=== PATIENT | female | born 1990 | race Two or more races ===

== ENCOUNTER 2018-07-11 00:32 | Emergency (ER) | payer OTHER ==
[~2018-07-11] VITALS: Ht 160 cm; Wt 61.8 kg
[2018-07-11 00:45] VITALS: Ht 160 cm; Wt 61.8 kg
[2018-07-11] MEDS ORDERED: PROZAC20 MG PO (00:46)
[2018-07-11] MEDS ORDERED: KLONOPIN0.5 MG PO (00:46)
[2018-07-11] MEDS ORDERED: LEVAQUIN750 MG PO (02:16)
[2018-07-11 02:27] VITALS: BP 124/79
[2018-07-16 18:11] LABS: AEROBE ID Final report (())
== END 2018-07-11 02:27 | disposition home or self-care (01) ==
LOC: D.ER 00:32
PROVIDERS: Family Medicine
DX: H66.92 Otitis media, unspecified, left ear (principal); F17.200 Nicotine dependence, unspecified, uncomplicated

== ENCOUNTER 2018-10-13 16:19 | Emergency (ER) | payer OTHER ==
[~2018-10-13] VITALS: Ht 160 cm; Wt 64.1 kg
[~2018-10-13 16:19] MED LIST: KLONOPIN0.5 MG PO; LEVAQUIN750 MG PO; PROZAC20 MG PO
[2018-10-13 16:24] VITALS: Ht 160 cm; Wt 64.1 kg
[2018-10-13 17:30] LABS: APPEARANCE CLEAR (CLEAR); BILIRUBIN NEGATIVE (NEGATIVE); COLOR YELLOW (YELLOW); GLUCOSE NEGATIVE (NEGATIVE); KETONE NEGATIVE (NEGATIVE); NITRITE NEGATIVE (NEGATIVE); PROTEIN NEGATIVE (NEGATIVE); SPECIFIC GRAVITY 1.015 (1.005-1.020); UROBILINOGEN NORMAL (NORMAL)
[2018-10-13 17:31] LABS: BACTERIA MANY /hpf (NONE SEEN); RED CELLS - URINE 0-5 /hpf (0-5); WHITE CELLS - URINE 0-5 /hpf (0-5)
[2018-10-13] MEDS ORDERED: VOLTAREN75 MG PO (18:48)
[2018-10-13] MEDS ORDERED: BACTRIM 400-801 TAB PO (18:48)
[2018-10-13 19:25] VITALS: BP 139/91
== END 2018-10-13 19:25 | disposition home or self-care (01) ==
LOC: D.ER 16:19
PROVIDERS: Family Medicine
DX: M54.5 Low back pain (principal); N39.0 Urinary tract infection, site not specified

== ENCOUNTER 2018-10-21 23:14 | Emergency (ER) | payer OTHER ==
[~2018-10-21] VITALS: Ht 160 cm; Wt 63.6 kg
[~2018-10-21 23:14] MED LIST changes: +BACTRIM 400-801 TAB PO; +VOLTAREN75 MG PO
[2018-10-21 23:31] VITALS: Ht 160 cm; Wt 63.6 kg
[2018-10-22 00:06] LABS: HCG URINE POSITIVE (NEGATIVE)
[2018-10-22 00:07] LABS: APPEARANCE HAZY (CLEAR); BILIRUBIN NEGATIVE (NEGATIVE); COLOR YELLOW (YELLOW); GLUCOSE NEGATIVE (NEGATIVE); KETONE NEGATIVE (NEGATIVE); NITRITE NEGATIVE (NEGATIVE); PROTEIN TRACE mg/dL (NEGATIVE); SPECIFIC GRAVITY 1.015 (1.005-1.020); UROBILINOGEN NORMAL (NORMAL)
[2018-10-22 00:08] LABS: BACTERIA FEW /hpf (NONE SEEN); EPITHELIAL CELLS 0-5 /hpf (0-5); RED CELLS - URINE 0-5 /hpf (0-5)
[2018-10-22] MEDS ORDERED: AUGMENTIN 875-11 TAB PO (00:35)
[2018-10-22 00:48] VITALS: BP 118/72
== END 2018-10-22 00:48 | disposition home or self-care (01) ==
LOC: D.ER 23:14
PROVIDERS: Family Medicine
DX: O23.40 Unspecified infection of urinary tract in pregnancy, unspecified trimester (principal); Z3A.00 Weeks of gestation of pregnancy not specified

== ENCOUNTER 2018-12-07 14:07 | Emergency (ER) | payer SELFPAY ==
[~2018-12-07 14:07] MED LIST changes: +AUGMENTIN 875-11 TAB PO
[2018-12-07 14:14] VITALS: Ht 160 cm
[2018-12-07] MEDS ORDERED: TORADOL10 MG PO (16:07)
[2018-12-07 16:40] VITALS: BP 112/73
== END 2018-12-07 16:41 | disposition home or self-care (01) ==
LOC: D.ER 14:07
DX: M54.5 Low back pain (principal); R51 Headache; S16.1XXA Strain of muscle, fascia and tendon at neck level, initial encounter; V43.52XA Car driver injured in collision with other type car in traffic accident, initial encounter; Y93.89 Activity, other specified; Y92.410 Unspecified street and highway as the place of occurrence of the external cause

== ENCOUNTER 2019-05-09 22:12 | Emergency (ER) | payer SELFPAY ==
[~2019-05-09 22:12] MED LIST changes: +TORADOL10 MG PO
[2019-05-09 23:17] LABS: BASOPHILS 0.1 % (0-2); EOSINOPHILS 0 % (0-7); HEMATOCRIT 33.9 % (36.0-48.0); HEMOGLOBIN 11.4 g/dL (12-16); IMMATURE GRANULOCYTES 0.5 % (0-5); LYMPHOCYTES 8.9 % (15-50); MCH 28.6 pg (26.0-34.0); MCHC 33.6 g/dL (31.0-37.0); MEAN PLATELET VOLUME 10.7 fL (7.4-10.4); MONOCYTES 9.1 % (2-11); NEUTROPHILS 81.4 % (40-80); PLATELET COUNT 191 10x3/uL (130-400); RBC 3.99 10x6/uL (4.00-5.40); RDW 13.1 % (11.5-14.5); WBC 9.6 10x3/uL (4.8-10.8)
[2019-05-09 23:20] LABS: APPEARANCE CLEAR (CLEAR); BILIRUBIN NEGATIVE (NEGATIVE); COLOR YELLOW (YELLOW); GLUCOSE NEGATIVE (NEGATIVE); KETONE NEGATIVE (NEGATIVE); NITRITE NEGATIVE (NEGATIVE); PROTEIN NEGATIVE (NEGATIVE); UROBILINOGEN NORMAL (NORMAL)
[2019-05-09 23:27] LABS: ALBUMIN 3.1 g/dL (3.4-5.0); ALKALINE PHOSPHATASE 54 U/L (46-116); ALT (SGPT) 13 U/L (10-68); BILIRUBIN - TOTAL 0.29 mg/dL (0.2-1.3); CALC OSMOLALITY 263 mosm/kg (275-300); CALCIUM 8.9 mg/dL (8.5-10.1); CARBON DIOXIDE 22.2 mmol/L (21.0-32.0); CHLORIDE - SERUM 101 mmol/L (98-107); CREATININE - SERUM 0.7 mg/dL (0.6-1.3); GLUCOSE 101 mg/dL (74-106); POTASSIUM - SERUM 3.6 mmol/L (3.5-5.1); PROTEIN - SERUM 7.7 g/dL (6.4-8.2); SODIUM 133 mmol/L (136-145); UREA NITROGEN 8 mg/dL (7-18); eGFR NON AFRICAN AMERICAN > 90 mL/min (90-120)
[2019-05-10 00:36] VITALS: BP 125/73
== END 2019-05-10 00:37 | disposition home or self-care (01) ==
LOC: D.ER 22:12
PROVIDERS: Family Medicine
DX: O26.892 Other specified pregnancy related conditions, second trimester (principal); Z3A.18 18 weeks gestation of pregnancy; B34.9 Viral infection, unspecified

== ENCOUNTER 2019-10-10 00:06 | Observation (INO) | payer MEDICAID ==
[~2019-10-10] VITALS: Ht 154.9 cm; Wt 78.6 kg
[2019-10-10] VITALS (12 sets, daily range): BP systolic 127–168; BP diastolic 65–99; Ht 154.9 cm; Wt 78.6 kg
[2019-10-10] MEDS ORDERED: HYDROCODON-ACE1 EA10 PO (00:17)
[2019-10-10] MEDS ORDERED: IBUPROFEN800 MG PO (00:17)
[2019-10-10 00:38] LABS: BASOPHILS 0.2 % (0-2); EOSINOPHILS 4.3 % (0-7); HEMATOCRIT 25.8 % (36.0-48.0); MCH 25.9 pg (26.0-34.0); MCV 83.5 fL (80.0-100.0); MEAN PLATELET VOLUME 9.9 fL (7.4-10.4); MONOCYTES 5.1 % (2-11); NEUTROPHILS 67.4 % (40-80); RBC 3.09 10x6/uL (4.00-5.40); RDW 15.3 % (11.5-14.5); WBC 8.4 10x3/uL (4.8-10.8)
[2019-10-10 00:40] LABS: PLATELET COUNT 244 10x3/uL (130-400)
[2019-10-10 00:48] LABS: APPEARANCE CLEAR (CLEAR); BILIRUBIN NEGATIVE (NEGATIVE); COLOR YELLOW (YELLOW); GLUCOSE NEGATIVE (NEGATIVE); KETONE SMALL mg/dL (NEGATIVE); NITRITE NEGATIVE (NEGATIVE); PROTEIN NEGATIVE (NEGATIVE); SPECIFIC GRAVITY 1.015 (1.005-1.020); UROBILINOGEN NORMAL (NORMAL); WHITE CELLS - URINE 0-5 /hpf (NEGATIVE)
[2019-10-10 01:03] LABS: CALC OSMOLALITY 280 mosm/kg (275-300); CALCIUM 8.4 mg/dL (8.5-10.1); CARBON DIOXIDE 27.3 mmol/L (21.0-32.0); CHLORIDE - SERUM 105 mmol/L (98-107); CREATININE - SERUM 0.7 mg/dL (0.6-1.3); GLUCOSE 78 mg/dL (74-106); POTASSIUM - SERUM 3.9 mmol/L (3.5-5.1); SODIUM 141 mmol/L (136-145); UREA NITROGEN 14 mg/dL (7-18); eGFR NON AFRICAN AMERICAN > 90 mL/min (90-120)
[2019-10-10 01:09] LABS: ALBUMIN 2.2 g/dL (3.4-5.0); ALKALINE PHOSPHATASE 108 U/L (46-116); ALT (SGPT) 30 U/L (10-68); BILIRUBIN - TOTAL 0.15 mg/dL (0.2-1.3); MAGNESIUM - SERUM 1.9 mg/dL (1.8-2.4); PRO BNP 1030 pg/mL (0-125); PROTEIN - SERUM 6.4 g/dL (6.4-8.2); THYROID STIMULATING HORMONE 4.16 uIU/mL (0.36-3.74); TROPONIN-I < 0.017 ng/mL (0.000-0.060)
[2019-10-10] MEDS ORDERED: PRENAVITE1 TAB PO (05:13)
--- NOTE | 2019-10-10 07:50 | NUR ---
RECEIVED PT IN BED. COMPLAINTS OF PAIN 06/09. NORCO GIVEN. PT STATES SWELLING IN FEET IMPROVED AND FEELS BETTER. NO SOB NOTED.
--- NOTE | 2019-10-10 19:30 | NUR ---
PT SITTING UP IN BED. IN ROOM. CL IN REACH. DENIES NEEDS AT THIS TIME. BED IN LOW SIDE RAILS X2. RESP EVEN AND UNLABORED. A/O X4. LUNGS CLEAR. BOWEL ACTIVE X4. WILL CONTINUE TO MONITOR.
--- NOTE | 2019-10-10 22:25 | NUR ---
PT SITTING UP IN BED. CL IN REACH. IN ROOM. RESP EVEN AND UNLABORED. A/O X4. LUNGS CLEAR. BOWEL ACTIVE X4. DENIES NEEDS AT THIS TIME. BED IN LOW SIDE RAILS X2. WILL CONTINUE TO MONITOR.
--- NOTE | 2019-10-11 07:38 | NUR ---
RECEIVED PT AWAKE IN BED. STATES SLEPT WELL. PUMPED THROUGHOUT NIGHT. AWAITING ECHO FOR TODAY. VITALS TAKEN.
[2019-10-11 07:39] VITALS: BP 139/90
[2019-10-11 12:09] VITALS: BP 146/96
[2019-10-11] MEDS ORDERED: FUROSEMIDE20 MG (14:59)
--- NOTE | 2019-10-11 17:19 | NUR ---
IV REMOVED AND DISCHARGE INSTRUCTIONS GIVEN. PT IS WAITING ON TO GET OFF WORK FOR [employer].
== END 2019-10-11 17:40 | disposition home or self-care (01) ==
LOC: D.ER 00:06 → D.M3 03:08 → OBSVTIME 03:08 → D.M3 10-11 17:40
PROVIDERS: Family Medicine; ADMIT Obstetrics & Gynecology; ATTEND Obstetrics & Gynecology
DX: O90.89 Other complications of the puerperium, not elsewhere classified (principal); R60.9 Edema, unspecified